=== PATIENT | male | born 1995 | race Caucasian/White ===

== ENCOUNTER 2017-08-04 16:00 | Emergency (ER) | payer BC, MEDICAID ==
[~2017-08-04] VITALS: Ht 149.9 cm; Wt 24.0 kg
[2017-08-04 16:41] VITALS: BP 131/86; PULSE 92; RESP 20; TEMP 98.3; O2SAT 96
--- NOTE | 2017-08-04 18:06 | PD ---
HPI Chief Complaint: Complaint Time Seen by Provider: 17:52 Travel History International Travel<30 days: No Contact w/Intl Traveler<30days: No Traveled to known affect area: No History of Present Illness HPI 22-year-old male with history of muscular dystrophy, tracheostomy on portable ventilator, here for evaluation of not having had urinated since yesterday evening. Patient has some bilateral flank pain. He states this occurs about 2 or 3 times a year, usually requiring straight cath to empty his bladder and he is usually fine after that. Patient also reports history of several kidney stones usually passed without any intervention. No fever. He is having some mild to moderate suprapubic discomfort as well as bilateral discomfort. [facility] Social History Tobacco Use: No Allergies-Medications (Allergen,Severity, Reaction): Coded Allergies: codeine (Verified Allergy, Severe, RESPIRATORY, 08/04/17) vancomycin (Verified Allergy, Severe, RESPIRATORY, 08/04/17) Penicillins (Verified Allergy, Unknown, 08/04/17) ipratropium (Verified Allergy, Unknown, 08/04/17) meperidine (Verified Allergy, Unknown, 08/04/17) Reported Meds & Prescriptions Reported Meds & Active Scripts Active Macrobid (Nitrofurantoin Monoh/Nitrofur Macro) 100 Mg Cap 100 Mg PO BID 5 Days Review of Systems Except as stated in HPI: all other systems reviewed are Neg Physical Exam Narrative GENERAL: Underdeveloped, thin, comfortable, on portable ventilator, no apparent distress. SKIN: Focused skin assessment warm/dry. HEAD: Atraumatic. Normocephalic. EYES: Pupils equal and round. No scleral icterus. No injection or drainage. ENT: Mucous membranes pink and moist. NECK: Trachea midline. No JVD. CARDIOVASCULAR: Regular rate and rhythm. RESPIRATORY: No accessory muscle use. Clear to auscultation. On portable ventilator. GASTROINTESTINAL: Abdomen soft, non-tender, nondistended. MUSCULOSKELETAL: Pain, upper and lower extremity contractures as well as contracted torso. NEUROLOGICAL: Awake and alert. No obvious cranial nerve deficits. Motor grossly within normal limits. Normal speech. PSYCHIATRIC: Appropriate mood and affect; insight and judgment normal. Data Data Last Documented VS Vital Signs Date Time Temp Pulse Resp B/P (MAP) Pulse Ox O2 Delivery O2 Flow Rate FiO2 08/04/17 16:41 98.3 92 20 131/86 (101) 96 Orders Orders Urinalysis - C+S If Indicated (08/04/17 18:02) ^ Straight Catheter (08/04/17 18:02) Urine Culture (08/04/17 18:18) Nitrofurantoin Monohyd Macrocr (Macrobid (08/04/17 19:15) Ed Discharge Order (08/04/17 19:18) Labs Laboratory Tests Test 08/04/17 18:18 Urine Color DARK-BROWN Urine Turbidity CLEAR Urine pH 6.5 Urine Specific [place] 1.014 Urine Protein NEG mg/dL Urine Glucose (UA) NEG mg/dL Urine Ketones 10 mg/dL Urine Occult Blood NEG Urine Nitrite POS Urine Bilirubin NEG Urine Urobilinogen 4.0 MG/DL Urine Leukocyte Esterase NEG Urine RBC 7 /hpf Urine WBC 2 /hpf Urine Bacteria RARE /hpf Urine Mucus FEW /lpf Microscopic Urinalysis Comment CULTURE INDICATED MDM Medical Decision Making Medical Screen Exam Complete: Yes Emergency Medical Condition: Yes Differential Diagnosis Urinary retention Narrative Course Bedside transabdominal ultrasound performed by me shows a full bladder. This is a 22-year-old male with history of muscular dystrophy who is underdeveloped with a severely contorted body who is here for evaluation of inability to urinate since yesterday evening. He states this occurs about 2-3 times per year, requiring emptying of his bladder with a straight cath. He is usually fine after this. It sounds like when the patient's bladder overfills it prevents him from urinating. Straight catheter was performed by nurse with 850 cc of urine output. UA: Dark brown, 10 ketones, positive nitrates, 4 urobilinogen, 7 RBCs, 2 WBCs, rare bacteria, few mucus, culture indicated. Although the UA is weakly suggestive of a UTI, given the patient's complex medical history, I will start him on Macrobid. He is stable for discharge home with outpatient follow-up. He was advised on when to return to the emergency department. With the patient and the patient's father verbalized understanding and agreement with plan. Diagnosis Primary Impression: Urinary retention Additional Impression: UTI (urinary tract infection) Qualified Codes: N39.0 - Urinary tract infection, site not specified Referrals: Primary Care Physician 3 days Additional Instructions: Follow-up with your primary care physician this week. Return to the emergency department for worsening symptoms or any other concerns. Scripts Nitrofurantoin Monohydrate Macrocrystals (Macrobid) 100 Mg Cap 100 MG PO BID for Infection for 5 Days, #10 CAP 0 Refills Prov: Ja Ocasio MD 08/04/17 Disposition: 01 DISCHARGE HOME Condition: Stable Ja Ocasio MD Aug 04, 2017 18:06
[2017-08-04 18:59] LABS: BACTERIA, URINE RARE /hpf; BLOOD, URINE NEG (NEG); GLUCOSE,URINE NEG (NEG); KETONE, URINE 10 mg/dL (NEG); MUCUS URINE FEW /lpf (OCC); NITRITE,URINE POS (NEG); PH, URINE 6.5 (5.0-8.5); URINE LEUKOCYTE ESTERASE NEG (NEG)
[2017-08-04 19:00] LABS: URINE COLOR DARK-BROWN (YELLW/STRAW)
[2017-08-04 19:01] LABS: BILIRUBIN, URINE NEG (NEG)
[2017-08-04] MEDS ORDERED: NITROFURANTOIN MONOHYD MACROCR 100 MG CAP PO ONE (19:15)
[2017-08-04] MEDS ORDERED: MACR100C2 PO (19:17)
== END 2017-08-04 20:04 | disposition home or self-care (01) ==
LOC: NEPD 16:00
DX: R33.9 Retention of urine, unspecified (principal); N39.0 Urinary tract infection, site not specified; G71.0 Muscular dystrophy; Z87.442 Personal history of urinary calculi
CPT/HCPCS: 81001; 87086; 99283